=== PATIENT | male | born 1990 | race Caucasian/White ===

== ENCOUNTER 2025-02-19 19:21 | Emergency (ER) | payer BC ==
--- NOTE | 2025-02-19 20:16 | RAD REPORT ---
EXAM: Hand Left 3 View HISTORY: laceration COMPARISON: None FINDINGS: Bones: No acute fracture identified. Alignment:No significant malalignment. Degenerative changes:None significant. Other: n/a IMPRESSION: No acute osseous abnormality involving the imaged hand.
[2025-02-19] MEDS ORDERED: LIDOCAINE 2% MPF 5 ML VIAL ONE (20:58)
[2025-02-19] MEDS ORDERED: ACETAMINOPHEN 500 MG TAB ONE (20:58)
[2025-02-19] MEDS ORDERED: IBUPROFEN 400 MG TAB ONE (20:58)
[2025-02-19] MEDS ORDERED: TDAP (DIPHTH,PERTUSS(ACELL),TET VAC) 0.5 ML VIAL IMVAC ONE (20:59)
--- NOTE | 2025-02-19 22:09 | EDPHYS ---
Physician Documentation [facility] Name: Edwin Garcia Age: 35 yrs Sex: Male : 1990 Arrival Date: 02/19/2025 Time: 19:21 Bed 18 Private MD: ED Physician Shelton Bernabe HPI: 02/19 19:50 This 35 yrs old Male presents to ER via Ambulatory with complaints of Laceration To cp Hand. 19:50 The patient has a laceration occurred outdoors, accidental while using knife while cp fishing. The laceration(s) is(are) located on the dorsal side of proximal left thumb. Onset: The symptoms/episode began/occurred just prior to arrival. Associated signs and symptoms: Pertinent negatives: heavy bleeding, numbness distal to injury, suspected foreign body. Historical: - Allergies: 19:41 amoxicillin; lg3 19:41 Erythromycin; lg3 19:41 Pediazole; lg3 19:41 Zithromax; lg3 19:41 Keflex; lg3 - Home Meds: 19:41 Adderall XR Oral [Active]; lg3 - PMHx: 19:41 None; lg3 - PSHx: 19:41 None; lg3 - Immunization history:: Adult Immunizations up to date, Last tetanus immunization: unknown. - Infectious Disease History:: Denies. - Social history:: Smoking status: Patient denies any tobacco usage or history of. Patient uses alcohol, occasionally. Patient/guardian denies using street drugs. ROS: 19:55 MS/extremity: Positive for laceration, pain, swelling, tenderness, of the proximal cp phalanx of left thumb, Negative for paresthesias, 19:55 Constitutional: Negative for body aches, chills, fever, poor PO intake, cp 19:55 Cardiovascular: Negative for chest pain, 19:55 Neuro: Negative for numbness, weakness, 19:55 All other systems are negative, Exam: 20:00 Constitutional: The patient appears in no acute distress, alert, awake, well developed, cp well nourished, uncomfortable, 20:00 Head/Face: Normocephalic, atraumatic. cp 20:00 Chest/axilla: Inspection: normal, 20:00 Cardiovascular: Rate: normal, Pulses: Pulses are 2+ in left radial artery. 20:00 Respiratory: the patient does not display signs of respiratory distress, Respirations: normal, no use of accessory muscles, no retractions, labored breathing, is not present, Breath sounds: are clear throughout, no decreased breath sounds, 20:00 Skin: injury, laceration(s), the wound is approximately 2.5 cm(s), of the dorsal side proximal phalanx left thumb, that can be described as no foreign body, linear, with mild bleeding, no signs tendon injury, full AROM left thumb, digit neurovascular intact. Vital Signs: 19:40 BP 142 / 81; Pulse 94; Resp 16 S; Temp 98.1(O); Pulse Ox 98% on R/A; Weight 117.93 kg lg3 (R); Height 5 ft. 11 in. (R); 22:42 BP 140 / 80; Pulse 88; Resp 18; Temp 98; Pulse Ox 100% on R/A; kj2 19:40 Body Mass Index 36.26 (117.93 kg, 180.34 cm) lg3 Laceration: 22:15 Wound Repair of 2.5cm ( 1.0in ) subcutaneous laceration to dorsal side proximal phalanx cp left thumb. Linear shaped.. Distal neuro/vascular/tendon intact. Anesthesia: Wound infiltrated with 6 mls of 2% lidocaine. Wound prep: Moderate cleansing by me, Wound irrigation by me. Skin closed with 3 4-0 Prolene using interrupted sutures and sterile technique. Dressed with Bacitracin, 4x4's. Patient tolerated well. MDM: 19:46 Medical Screening Exam initiated cp 22:08 Data reviewed: vital signs, nurses notes, radiologic studies, plain films, and as a cp result, I will discharge patient. 22:08 Differential diagnosis: superficial laceration, tendon injury, vascular injury. I cp considered the following discharge prescriptions or medication management in the emergency department Medications were administered in the Emergency Department. See MAR. Counseling: I had a detailed discussion with the patient and/or guardian regarding the historical points, exam findings, and any diagnostic results supporting the discharge/admit diagnosis, radiology results, the need for outpatient follow up, a family practitioner, to return to the emergency department if symptoms worsen or persist or if there are any questions or concerns that arise at home. Response to treatment: the patient's symptoms have markedly improved after treatment, and as a result, I will discharge patient. 08/13 19:44 Order name: XRAY Hand LEFT 3 View cp 02/19 19:44 Order name: Dressing - Wound cp 02/19 19:44 Order name: Gloves, Sterile; Complete Time: 21:58 cp 02/19 19:44 Order name: Setup Suture Tray; Complete Time: 21:58 cp 02/19 22:07 Order name: Wound dressing; Complete Time: 22:42 cp Administered Medications: 21:04 Drug: Boostrix Tdap IM 0.5 ml IM once; as a single dose Route: IM; Site: left deltoid; kj2 21:58 Follow up: Response: No adverse reaction kj2 21:04 Drug: Ibuprofen PO 800 mg PO once Route: PO; kj2 21:58 Follow up: Response: No adverse reaction kj2 21:04 Drug: Acetaminophen PO 1000 mg PO once Route: PO; kj2 21:58 Follow up: Response: No adverse reaction kj2 21:58 Drug: Lidocaine Infiltration (2 %) 10 ml 5 ml Infiltration once; to bedside {Note: kj2 administered by provider.} Volume: 5 ml; Route: Infiltration; 22:36 Drug: Doxycycline PO 100 mg PO once Route: PO; kj2 22:36 Follow up: Response: Medication administered at discharge. kj2 Disposition: 02/20 21:46 Chart complete. cp 21:53 Co-signature as Attending Physician, Shelton Bernabe MD I reviewed the patient's care rn provided by the Advanced Practice Provider and agree with the diagnosis and treatment plan. Disposition Summary: 02/19/25 22:08 Discharge Ordered Notes: Location: Home cp Problem: new cp Symptoms: have improved cp Condition: Stable cp Diagnosis - Laceration without foreign body of left hand, initial encounter cp Followup: cp - With: Private Physician - When: 10 - 14 days - Reason: Staple/Suture removal Discharge Instructions: - Discharge Summary Sheet cp - Laceration Care, Adult cp - Sutured Wound Care cp Forms: - Medication Reconciliation Form cp - Antibiotic Education cp - Prescription Opioid Use cp - Patient Portal Instructions cp - Leadership Thank You Letter cp Prescriptions: - Ibuprofen 800 mg Oral Tablet - take 1 tablet ORAL route every 8 hours As needed take with food; 30 tablet; cp Refills: 0, Product Selection Permitted - Doxycycline Monohydrate 100 mg Oral tablet - take 1 tablet ORAL route every 12 hours for 7 days; 14 tablet; Refills: 0, cp Product Selection Permitted Signatures: Dispatcher [employer] EDMS Shelton Bernabe MD MD rn Page, Corey, PA PA cp Able, Lacie, RN RN lg3 Hoda Tenorio RN RN kj2 Corrections: (The following items were deleted from the chart) 02/19 19:45 19:41 Allergies: Erythrocin; lg3 lg3 02/20 21:40 21:20 MS/extremity: Positive for laceration, pain, swelling, tenderness, of the cp proximal phalanx of left thumb, Negative for paresthesias, cp
--- NOTE | 2025-02-19 22:09 | ER ---
Nurse's Notes [facility] Name: Edwin Garcia Age: 35 yrs Sex: Male : 1990 Arrival Date: 02/19/2025 Time: 19:21 Bed 18 Private MD: Diagnosis: Laceration without foreign body of left hand, initial encounter Presentation: 02/19 19:40 Chief complaint: Patient states: laceration to left hand with fish knife. Coronavirus lg3 screen: Client denies travel out of the [place] in the last 14 days. At this time, the client does not indicate any symptoms associated with coronavirus-19. Ebola Screen: No symptoms or risks identified at this time. Complicating Factors: There are no complicating factors for this patient. Initial Sepsis Screen: Does the patient meet any 2 criteria? No. Patient's initial sepsis screen is negative. Does the patient have a suspected source of infection? No. Patient's initial sepsis screen is negative. Risk Assessment: Do you want to hurt yourself or someone else? Patient reports no desire to harm self or others. Onset of symptoms was February 19, 2025. 19:40 Method Of Arrival: Ambulatory lg3 19:40 Acuity: YUE 4 lg3 Triage Assessment: 19:41 General: Appears in no apparent distress. comfortable, Behavior is calm, cooperative. lg3 Pain: Complains of pain in left hand. EENT: No deficits noted. No signs and/or symptoms were reported regarding the EENT system. Neuro: No deficits noted. Henao Agitation-Sedation Scale (RASS): 0 - Alert and Calm Level of Consciousness is awake, alert, obeys commands, Oriented to person, place, time, situation. Cardiovascular: No deficits noted. Denies chest pain, shortness of breath, Capillary refill < 3 seconds Clubbing of nail beds is absent JVD is absent Patient's skin is warm and dry. Respiratory: No deficits noted. Airway is patent Respiratory effort is even, unlabored, Respiratory pattern is regular, symmetrical. GI: No deficits noted. No signs and/or symptoms were reported involving the gastrointestinal system. : No signs and/or symptoms were reported regarding the genitourinary system. Derm: Skin is intact, is healthy with good turgor, Skin is dry, Skin is normal, Skin temperature is warm Wound noted left hand. Injury Description: Laceration sustained to left hand is clean, 0.5 to 2.5 cm long, not bleeding, is bleeding no active bleeding noted. Historical: - Allergies: 19:41 amoxicillin; lg3 19:41 Erythromycin; lg3 19:41 Pediazole; lg3 19:41 Zithromax; lg3 19:41 Keflex; lg3 - Home Meds: 19:41 Adderall XR Oral [Active]; lg3 - PMHx: 19:41 None; lg3 - PSHx: 19:41 None; lg3 - Immunization history:: Adult Immunizations up to date, Last tetanus immunization: unknown. - Infectious Disease History:: Denies. - Social history:: Smoking status: Patient denies any tobacco usage or history of. Patient uses alcohol, occasionally. Patient/guardian denies using street drugs. Screenin:00 [facility] ED Fall Risk Assessment (Adult) History of falling in the last 3 months, kj2 including since admission No falls in past 3 months (0 pts) Confusion or Disorientation No (0 pts) Intoxicated or Sedated No (0 pts) Impaired Gait No (0 pts) Mobility Assist Device Used No (0 pt) Altered Elimination No (0 pt) Score/Fall Risk Level 0 - 2 = Low Risk Maintained a safe environment, Hourly rounding (assess needs \T\ fall precautionary measures) done. Abuse screen: Denies threats or abuse. Denies injuries from another. Nutritional screening: No deficits noted. Tuberculosis screening: No symptoms or risk factors identified. Assessment: 21:00 General: Appears in no apparent distress. Behavior is cooperative. Pain: Complains of kj2 pain in left hand Pain currently is 6 out of 10 on a pain scale. Neuro: Level of Consciousness is awake, alert, obeys commands, Oriented to person, place, time, situation. Cardiovascular: Patient's skin is warm and dry. Respiratory: Airway is patent Respiratory effort is even, unlabored. GI: No signs and/or symptoms were reported involving the gastrointestinal system. : No signs and/or symptoms were reported regarding the genitourinary system. Musculoskeletal: Reports pain in left hand. 22:00 Reassessment: Patient appears in no apparent distress at this time. Patient and/or kj2 family updated on plan of care and expected duration. Pain level reassessed. Patient is alert, oriented x 3, equal unlabored respirations, skin warm/dry/pink. 22:28 Reassessment: Patient appears in no apparent distress at this time. Patient and/or kj2 family updated on plan of care and expected duration. Pain level reassessed. Patient is alert, oriented x 3, equal unlabored respirations, skin warm/dry/pink. Vital Signs: 19:40 BP 142 / 81; Pulse 94; Resp 16 S; Temp 98.1(O); Pulse Ox 98% on R/A; Weight 117.93 kg lg3 (R); Height 5 ft. 11 in. (R); 22:42 BP 140 / 80; Pulse 88; Resp 18; Temp 98; Pulse Ox 100% on R/A; kj2 19:40 Body Mass Index 36.26 (117.93 kg, 180.34 cm) lg3 ED Course: 19:22 Patient arrived in ED. jj6 19:25 Carlos Aguiar PA is PHCP. cp 19:25 Shelton Bernabe MD is Attending Physician. cp 19:41 Triage completed. lg3 19:41 Arm band placed on right wrist. lg3 20:09 XRAY Hand LEFT 3 View In Process Unspecified. EDMS 20:49 Hoda Tenorio, TACHO is Primary Nurse. kj2 21:00 Patient has correct armband on for positive identification. Bed in low position. Call kj2 light in reach. Provided Education on: call light. 22:43 No provider procedures requiring assistance completed. Patient did not have IV access kj2 during this emergency room visit. Administered Medications: 21:04 Drug: Boostrix Tdap IM 0.5 ml IM once; as a single dose Route: IM; Site: left deltoid; kj2 21:58 Follow up: Response: No adverse reaction kj2 21:04 Drug: Ibuprofen PO 800 mg PO once Route: PO; kj2 21:58 Follow up: Response: No adverse reaction kj2 21:04 Drug: Acetaminophen PO 1000 mg PO once Route: PO; kj2 21:58 Follow up: Response: No adverse reaction kj2 21:58 Drug: Lidocaine Infiltration (2 %) 10 ml 5 ml Infiltration once; to bedside {Note: kj2 administered by provider.} Volume: 5 ml; Route: Infiltration; 22:36 Drug: Doxycycline PO 100 mg PO once Route: PO; kj2 22:36 Follow up: Response: Medication administered at discharge. kj2 Medication: 22:28 Vaccine Information Statement (VIS) provided today. Questions and/or concerns kj2 addressed. VIS edition date: February 12, 2021. Outcome: 22:08 Discharge ordered by MD. galeas 22:43 Discharged to kj2 22:43 Condition: stable 22:43 Discharge instructions given to patient, Instructed on discharge instructions, follow kj2 up and referral plans. Demonstrated understanding of instructions, follow-up care, 22:43 Patient left the ED. kj2 Signatures: Dispatcher [employer] EDMS Carlos Aguiar PA PA cp Able, Lacie, RN RN lg3 Maren [id number] Hoda Tenorio, RN RN kj2 Corrections: (The following items were deleted from the chart) 19:45 19:41 Allergies: Erythrocin; lg3 lg3
[2025-02-19] MEDS ORDERED: DOXYCYCLINE 100 MG CAP PO ONE (22:33)
[2025-02-19 23:06] VITALS: BP 140/80; TEMP 98; O2SAT 100
== END 2025-02-19 22:43 | disposition home or self-care (01) ==
LOC: ER 19:21
DX: S61.012A Laceration without foreign body of left thumb without damage to nail, initial encounter (principal); W26.0XXA Contact with knife, initial encounter; Z23 Encounter for immunization
CPT/HCPCS: 73130; 90715; 96372; 99284; 12001; J2003